=== PATIENT | male | born 1985 | race Caucasian/White ===

== ENCOUNTER 2021-04-03 20:24 | Inpatient (IN) | payer SELFPAY ==
[~2021-04-03] VITALS: Ht 182.9 cm; Wt 63.2 kg
[~2021-04-03 20:24] MED LIST: GLYB5TAB3 PO; METF10007 PO; METF500T16 PO
--- NOTE | 2021-04-03 20:28 | PHYS DOC ---
Past History Past Medical History: Diabetes, Other Past Surgical History: Other Smoking: Cigarettes Alcohol Use: Occasionally Drug Use: Amphetamine, Marijuana General Adult HPI: HPI: "... My sugars are up... ' Patient is a 35 year old MALE who presents with above hx and complaints of hyperglycemia . Pt. has past medical history of diabetes patient does have primary care at [facility]. Had previous admission for hyperglycemic sometimes glucoses were as high as 800. Patient does smoke., Does not drink alcohol but does use marijuana every day. Patient has been compliant with his insulin usage. Has completed 1 COVID vaccination. Has not completed flu vaccination or Pneumovax. No recent travel. No specific ill contacts. Hx. Tobacco and Methamphetaime use. Review of Systems: Review of Systems: Constitutional: Denies fever or chills Eyes: Denies change in visual acuity HENT: Denies nasal congestion or sore throat Respiratory: Denies cough or shortness of breath Cardiovascular: Denies chest pain or edema GI: Complains of nausea, vomiting,. Denies bloody stools or diarrhea : Denies dysuria Musculoskeletal: Denies back pain or joint pain Integument: Denies rash Neurologic: Denies headache, focal weakness or sensory changes Endocrine: Denies polyuria or polydipsia Lymphatic: Denies swollen glands Psychiatric: Denies depression or anxiety Family History: Family History: Non-contributory Current Medications: Current Meds: See Nursing for home meds Allergies: Allergies: Allergies Coded Allergies Type Severity Reaction Last Updated Verified Sulfa (Sulfonamide Antibiotics) Adverse Reaction Intermediate 05/07/14 Yes Physical Exam: PE: Constitutional: moderatedacute distress, non-toxic appearance. [] HENT: Normocephalic, atraumatic, bilateral external ears normal, oropharynx dry, no oral exudates, nose normal. []Poor dentition. Eyes: PERRLA, EOMI, conjunctiva normal, no discharge. [] Neck: Normal range of motion, no tenderness, supple, no stridor. [] Cardiovascular:Tachycardia Heart rate regular rhythm, no murmur [] Lungs & Thorax: Bilateral breath sounds equal at apexes on auscultation []. Some scattered wheezes. Abdomen: Bowel sounds normal, soft, no tenderness, no masses, no pulsatile masses. [] Skin: Warm, dry, no erythema, no rash. Poor turgor Back: No tenderness, no CVA tenderness. [] Extremities: No tenderness, no cyanosis, no clubbing, ROM intact, no edema. [] Neurologic: Alert and oriented X 3, normal motor function, normal sensory function, no focal deficits noted. [] Psychologic: Affect anxious, judgement normal, mood normal. [] EKG: EKG: My interpretation EKG shows a sinus rhythm at 64 bpm. Does have some left bundle block changes. But no findings acute STEMI of contralateral changes. Time of EKG is 20:33 hours [] My interpretation second EKG shows a sinus rhythm at 64 bpm. No acute morphology does have findings of left bundle branch block. Time of EKG is 109 hours Radiology/Procedures: Radiology/Procedures: [] Heart Score: C/O Chest Pain: No HEART Score for Chest Pain: HEART Score for Chest Pain Response (Comments) Value History Slighlty/Non-Suspicious 0 ECG Normal 0 Age < 45 0 Risk Factors 1 or 2 Risk Factors 1 Troponin < Normal Limit 0 Total 1 Risk Factors: Risk Factors: DM, Current or recent (<one month) smoker, HTN, HLP, family history of CAD, obesity. Risk Scores: Score 0 - 3: 2.5% MACE over next 6 weeks - Discharge Home Score 4 - 6: 20.3% MACE over next 6 weeks - Admit for Clinical Observation Score 7 - 10: 72.7% MACE over next 6 weeks - Early Invasive Strategies Course & Med Decision Making: Course & Med Decision Making Pertinent Labs and Imaging studies reviewed. (See chart for details) Discussed presentation, testing and tx. plan with Dr. Angelo- admit to his service. Insulin qtt and NS- Recheck potassium this AM after fluids and Insulin. Critical Care [address] Salgado- at shift change pending admit to [facility]. Impression: 1. DM- DKA 2. Hyperglycemia glucose . Dehydration 4. Leukocytosis 36.5 5. Hyponatremia 121 6. Hyperkalemia 6.4 7. Renal Insuf. 57 BUN/Creat 1.7 8. Anemia 12.4 Hgb 9. Malnutrition alb. 2.3 [] Owen Disclaimer: Owen Disclaimer: This electronic medical record was generated, in whole or in part, using a voice recognition dictation system. Departure Departure: Referrals: PCP,TITUS (PCP) Owen Disclaimer This chart was dictated in whole or in part using Voice Recognition software in a busy, high-work load, and often noisy Emergency Department environment. It may contain unintended and wholly unrecognized errors or omissions. Dragon Disclaimer This chart was dictated in whole or in part using Voice Recognition software in a busy, high-work load, and often noisy Emergency Department environment. It may contain unintended and wholly unrecognized errors or omissions. REED JOY MD Apr 03, 2021 20:27
[2021-04-03] MEDS ORDERED: IV NORMAL SALINE 1,000ML 1,000 ML IV SCH (20:45)
[2021-04-03] MEDS ORDERED: IV NORMAL SALINE 1,000ML 1,000 ML IV ONE (21:30)
--- NOTE | 2021-04-03 22:02 | RAD ---
Study: XR CHEST 1V Indication: Tachycardia. Comparison: 03/18/2019 Findings: Increased lung markings but the overall aeration pattern of the lungs is similar to the comparison. N o confluent airspace infiltrate, pleural effusion or pneumothorax. The cardiomediastinal silhouette i s within normal limits for size. Unchanged shirley. Impression: Nonspecific mildly increased lung markings but not significantly different from 03/18/2019. This coul d be chronic but mild interstitial edema is not entirely excluded in the setting of reported tachycar mina. No pleural effusion or lobar consolidation. Electronically signed by: NICOLAS HOLCOMB MD (04/03/2021 10:00 PM) [facility]
[2021-04-03 22:59] LABS: BASO # 0.3 x10^3/uL (0.0-0.2); BASO % 1 % (0-3); EOS # 0.1 x10^3/uL (0.0-0.7); EOS % 0 % (0-3); HEMATOCRIT 42.9 % (39.0-53.0); HEMOGLOBIN 12.4 g/dL (13.0-17.5); LYMPH # 5.2 x10^3/uL (1.0-4.8); LYMPH % 14 % (24-48); MEAN CORPUSCULAR HEMOGLOBIN 29 pg (25-35); MEAN CORPUSCULAR HGB CONC 29 g/dL (31-37); MEAN CORPUSCULAR VOLUME 101 fL (79-100); MONO # 1.9 x10^3/uL (0.0-1.1); MONO % 5 % (0-9); NEUT # 28.9 x10^3uL (1.8-7.7); NEUT % 79 % (31-73); PLATELET COUNT 304 x10^3/uL (140-400); RED BLOOD COUNT 4.27 x10^6/uL (4.30-5.70); RED CELL DISTRIBUTION WIDTH 14.5 % (11.5-14.5); WHITE BLOOD COUNT 36.5 x10^3/uL (4.0-11.0)
[2021-04-03 23:55] LABS: ALBUMIN 2.3 g/dL (3.4-5.0); ALK PHOS 183 U/L (46-116); ALT (SGPT) 39 U/L (16-63); AST (SGOT) 56 U/L (15-37); BLOOD UREA NITROGEN 57 mg/dL (8-26); CALCIUM 7.4 mg/dL (8.5-10.1); CHLORIDE 87 mmol/L (98-107); CREATININE 1.7 mg/dL (0.7-1.3); DIRECT BILIRUBIN 0.1 mg/dL (0.0-0.2); GFR 45.6; LIPASE 333 U/L (73-393); SODIUM 121 mmol/L (136-145); TOTAL BILIRUBIN 0.3 mg/dL (0.2-1.0); TOTAL PROTEIN 5.2 g/dL (6.4-8.2)
[2021-04-03 23:56] LABS: ANION GAP 29 (6-14)
[2021-04-04] VITALS (11 sets, daily range): BP systolic 92–132; BP diastolic 53–80
--- NOTE | 2021-04-04 00:17 | EKG ---
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
--- NOTE | 2021-04-04 00:17 | RAD ---
EXAMINATION: XR ABDOMEN 2V CLINICAL HISTORY: Pain, nausea/vomiting TECHNIQUE: XR ABDOMEN 2V COMPARISON: None FINDINGS/ IMPRESSION: Nonspecific, nonobstructive bowel gas pattern. No evidence of pneumoperitoneum or suspicious abdomina l calcifications. No evidence of acute osseous abnormality. Electronically signed by: Phuc Hendricks DO (04/04/2021 12:14 AM) [facility]
[2021-04-04 00:19] LABS: CARBON DIOXIDE < 5 mmol/L (21-32); POTASSIUM 6.4 mmol/L (3.5-5.1)
[2021-04-04] MEDS ORDERED: INSULIN REGULAR VIAL 100 UNIT in IV NORMAL SALINE 100ML 100 ML IV PRN (00:30)
[2021-04-04] MEDS ORDERED: ONDANSETRON PF 4 MG/2 ML VIAL. IVP PRN (00:30)
[2021-04-04] MEDS ORDERED: IV NORMAL SALINE 100ML 100 ML ONE ×2 (00:46→04:41)
[2021-04-04] MEDS ORDERED: cefTRIAXone SODIUM 1 GM VIAL ONE (00:46)
[2021-04-04] MEDS ORDERED: IV NORMAL SALINE 50ML 50 ML ONE (00:46)
[2021-04-04 00:59] LABS: GLUCOSE 843 mg/dL (70-99)
[2021-04-04] MEDS ORDERED: IV NORMAL SALINE 1,000ML 1,000 ML IV ONE ×2 (01:00)
[2021-04-04] MEDS: INSULIN REGULAR VIAL 100 UNIT in IV NORMAL SALINE 100ML 100 ML IV PRN ×3 (01:09→23:11)
--- NOTE | 2021-04-04 01:21 | EKG ---
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
[2021-04-04 01:49] LABS: % EOS 1 % (0-5); % LYMPHS 11 % (24-48); % MONOS 11 % (0-10); % SEGS 77 % (35-66); PLT ESTIMATE ADEQUATE (ADEQUATE)
[2021-04-04 01:51] LABS: INFLUENZA A PATIENT NEGATIVE (NEGATIVE); INFLUENZA B PATIENT NEGATIVE (NEGATIVE)
[2021-04-04 02:27] LABS: BARBITURATES NEG (NEG); BENZODIAZEPINES NEG (NEG); CANNABINOIDS NEG (NEG); COCAINE NEG (NEG); METHADONE NEG (NEG); OPIATES NEG (NEG); PHENCYCLIDINE NEG (NEG)
[2021-04-04 02:33] LABS: AMPHETAMINE/METHAMPHETAMINE POS (NEG)
[2021-04-04 02:47] LABS: BILIRUBIN,URINE NEG (NEG); CLARITY,URINE CLEAR; COLOR,URINE YELLOW; GLUCOSE,URINE 500 mg/dL (NEG)
[2021-04-04 02:48] LABS: BACTERIA,URINE MOD /HPF (0-FEW); NITRITE,URINE NEG (NEG); RBC,URINE >40 /HPF (0-2); SQUAMOUS EPITHELIAL CELL,UR MOD /LPF; UROBILINOGEN,URINE 0.2 mg/dL (0.2 mg/dL)
[2021-04-04] MEDS ORDERED: BENZOCAINE ONE 20% MUCOSAL SPRAY. MM (04:00)
[2021-04-04] MEDS: ACETAMINOPHEN 325 MG TABLET PO PRN ×2 (07:26→12:07)
[2021-04-04] MEDS ORDERED: IPRATRPIUM/ALBUTEROL 0.5/2.5MG 3 ML NEBU. NEB SCH (08:00)
--- NOTE | 2021-04-04 09:44 | RAD ---
XR HAND_RIGHT 3 VIEWS 04/04/2021 9:21 AM INDICATION: Hand pain COMPARISON: None available. TECHNIQUE: 3 views of the right hand are provided. FINDINGS/ IMPRESSION: Subtle subcortical cystic change identified along the radial margin of the distal aspect of the proxi mal phalanx of the third digit. No significant adjacent soft tissue swelling. Consideration may be gi naina for mild degenerative changes. No acute fracture or dislocation. No subcutaneous gas or osseous e rosion. Electronically signed by: Lucita Brooke MD (04/04/2021 9:42 AM) [id number]
--- NOTE | 2021-04-04 11:05 | NUR ---
Erum Schilling 35yo male, was admitted to ICU-2, inpatient, ICU status, Dr. Angelo dx: DKA. Pt was brought to unit via [facility]. Pt settled into room, oriented to room and bed, call light, etc. Admission assessment completed. Pt connected to monitors. Pt completed 1 bag of insulin drip and IVF in ER prior to arriving to our unit. Pt will be restarted upon arrival of medications from pharmacy. Dr. Angelo here to evaluate pt. Pt was provided written copies of hospital and unit policies and procedures.
[2021-04-04 11:54] LABS: BASO # 0.1 x10^3/uL (0.0-0.2); BASO % 1 % (0-3); EOS % 0 % (0-3); HEMATOCRIT 36.4 % (39.0-53.0); HEMOGLOBIN 11.9 g/dL (13.0-17.5); LYMPH # 2.4 x10^3/uL (1.0-4.8); LYMPH % 11 % (24-48); MEAN CORPUSCULAR HEMOGLOBIN 29 pg (25-35); MEAN CORPUSCULAR HGB CONC 33 g/dL (31-37); MEAN CORPUSCULAR VOLUME 89 fL (79-100); MONO # 2.3 x10^3/uL (0.0-1.1); MONO % 11 % (0-9); NEUT # 16.8 x10^3uL (1.8-7.7); NEUT % 78 % (31-73); PLATELET COUNT 250 x10^3/uL (140-400); RED BLOOD COUNT 4.11 x10^6/uL (4.30-5.70); RED CELL DISTRIBUTION WIDTH 13.7 % (11.5-14.5); WHITE BLOOD COUNT 21.5 x10^3/uL (4.0-11.0)
[2021-04-04] MEDS ORDERED: POTASSIUM CL 20MEQ D5-0.45NACL 1,000 ML IV ONE ×2 (12:04→16:27)
[2021-04-04 12:11] LABS: ALBUMIN 2.1 g/dL (3.4-5.0); ALBUMIN/GLOBULIN RATIO 0.8 (1.0-1.7); CALCIUM 7.6 mg/dL (8.5-10.1); CREATININE 1.2 mg/dL (0.7-1.3); GFR 68.1; TOTAL BILIRUBIN 0.3 mg/dL (0.2-1.0); TOTAL PROTEIN 4.8 g/dL (6.4-8.2)
--- NOTE | 2021-04-04 12:29 | HP ---
DATE OF SERVICE: 04/04/2021 ADMIT DATE: 04/04/2021 HISTORY OF PRESENT ILLNESS: The patient is a 35-year-old male patient who presented to the Emergency Room with a complaint of hyperglycemia and he stated that he is known to have insulin requiring type 1 diabetes mellitus since he was 31 years old and over the last few days, his blood sugar was extremely high, he also had blurring of vision and markedly unsteady gait and therefore, his son brought him to the Emergency Room for further evaluation and treatment where he was found to be in diabetic ketoacidosis, his blood sugar was more than 800, in fact was 843. He has dilutional hyponatremia, hyperkalemia, severe anion gap of 29 and acute kidney injury with a BUN of 57, creatinine 1.7. He was treated in the Emergency Room with IV fluid. He was apparently started on insulin drip and a total of 4 liters of normal saline. By the time I saw him, his blood sugar was down to 183. Unfortunately, no lab works done again to see whether he closed his gap. PAST MEDICAL HISTORY: Significant for type 1 diabetes mellitus diagnosed when he was 31 years old. He apparently was admitted with diabetic ketoacidosis 3 times since he was diagnosed. Denied any other medical problems. PAST SURGICAL HISTORY: Significant for right knee surgery. ALLERGIES: HE IS ALLERGIC TO SULFA DRUGS. MEDICATIONS: He is currently on Lantus insulin. He is also on metformin 1000 mg twice a day as well as glyburide 10 mg twice a day. He is also on NovoLog as per insulin sliding scale, although he claims that he is not on any medication. FAMILY HISTORY: He has one brother, older, and has hypertension; one sister, younger, and has epilepsy. His father in his 40s because of myocardial infarction. His mother is still alive at the age of 52 and healthy. SOCIAL HISTORY: He is single, has 3 sons, ages 13 and 15 and 19. He smokes marijuana and methamphetamine. Does not drink any alcohol. He usually works to [employer]. REVIEW OF SYSTEMS: The patient denied any blurring of vision, cataracts, glaucoma or macular degeneration. Denied any earache, tinnitus or sensory deafness. Denied any nosebleed, stuffy nose or postnasal drip. Denied any sore throat, sore tongue, toothache, hoarseness of voice or difficulty swallowing. Denied any nausea, vomiting. He did complain of diarrhea, but denied any constipation. Denied any hematemesis, melena or hematochezia. Denied any dysuria, frequency or hematuria. Denied any chest pain, shortness of breath, orthopnea or paroxysmal nocturnal dyspnea. Denied any cough, phlegm or hemoptysis. Denied any chills, rigors or fever. PHYSICAL EXAMINATION: GENERAL: On arrival to the Emergency Room, was tachypneic, but there was no pallor, jaundice or cyanosis, no lymphadenopathy, no thyromegaly, no jugular venous distention. No lower limb edema. VITAL SIGNS: His heart rate on arrival was 67, blood pressure was 85/58, temperature was 98, respiratory rate 26, and oxygen saturation was 92% on room air. HEAD, EYES, EARS, NOSE, AND THROAT: Normocephalic, atraumatic. NECK: Supple. HEART: Normal first and second heart sounds. No gallop, rub or murmur. CHEST: Clear to auscultation, no crepitation or rhonchi. ABDOMEN: Scaphoid, soft, nontender. NEUROLOGIC: He apparently was very lethargic; however, without any motor or sensory deficit. His EKG showed that he was in sinus rhythm at a rate of 64 beats per minute. Does have some left bundle block changes, but no finding of ST segment elevation myocardial infarction. LABORATORY DATA: Has had lab work and imaging studies. His CBC showed a white cell count of 36,500, hemoglobin 12.4, hematocrit 42.9, MCV 101, and platelet count of 304,000 with a manual differential showed 79% polymorphs, 14% lymphocytes and 5% monocytes. His chemistry showed a serum sodium of 121, potassium 6.4, chloride 87, bicarbonate less than 5, anion gap of 29, BUN 57, creatinine 1.7. Estimated GFR was 45 mL per minute. His glucose was 843, calcium was 7.4. Total bilirubin, AST, ALT, alkaline phosphatase are all normal. His troponin was less than 12, beta natriuretic peptide was 66. Total protein was 5.2, albumin was 2.3, serum lipase was 333. Urinalysis showed the urine was yellow, clear, with a pH of 5.5, specific gravity 1.015. There was small amount of protein, large amount of glucose, large amount of ketones, large amount of blood. The urine was negative for nitrite and bilirubin. Negative for leukocyte esterase. There are more than 40 rbc's, 5-10 wbc's and moderate amount of bacteria. His urine toxic screen was positive for amphetamine, methamphetamine. His coronavirus or influenza A and B were negative and coronavirus by rapid testing was negative. Did have a chest x-ray, which showed mildly increased lung marking, but not significantly different from 03/26/2019. This could be chronic, but mild interstitial edema is not entirely excluded in the setting of a reported tachycardia. No pleural effusion or lobar consolidation. Did have an x-ray of his right hand, which shows subtle subcortical cystic change identified along the radial margin of the distal aspect of the proximal phalanx of the third digit. No significant adjacent soft tissue swelling. Consideration may be given to mild degenerative changes, no acute fracture or dislocation. No subcutaneous gas or osseous erosions. X-ray of the abdomen showed the patient has nonspecific nonobstructive bowel gas pattern. No evidence of pneumoperitoneum or suspicious abdominal calcification. No evidence of acute osseous abnormality. ASSESSMENT AND PLAN: The patient was admitted with diabetic ketoacidosis with severe anion gap acidosis, dilutional hyponatremia and acute kidney injury. As his baseline creatinine is only 0.7, plan is to continue with DKA protocol with IV fluids, insulin drip. Once his blood sugar gets less than 250, we will change him to D5W. Continue with insulin drip and IV fluid and repeat his labs again and if the anion gap is closed, he is able to eat and drink, we can stop the drip and start him on insulin sliding scale as well Lantus. JAYLENE DR: Earl TID: [id number]
--- NOTE | 2021-04-04 13:00 | NUR ---
Per Dr. Angelo, pt is to continue on insulin drip overnight. IVF to remain running per DKA protocol. Glucostablizer not working properly, refer to glucostablizer written form for hourly glucose readings and insulin adjustments.
[2021-04-04] MEDS: IV DEXTROSE 5 %-0.45 % NACL 1,000 ML IV SCH ×2 (16:45→23:50)
[2021-04-05 00:03] VITALS: BP 113/85
[2021-04-05 02:13] VITALS: BP 90/54
[2021-04-05 03:10] VITALS: BP 102/59
[2021-04-05 04:08] VITALS: BP 117/70
[2021-04-05 05:17] VITALS: BP 102/65
[2021-04-05] MEDS: IV DEXTROSE 5 %-0.45 % NACL 1,000 ML IV SCH (05:31)
[2021-04-05 06:05] VITALS: BP 103/70
[2021-04-05 06:15] LABS: BASO % 0 % (0-3); EOS % 0 % (0-3); HEMATOCRIT 31.6 % (39.0-53.0); HEMOGLOBIN 10.8 g/dL (13.0-17.5); LYMPH # 1.3 x10^3/uL (1.0-4.8); LYMPH % 9 % (24-48); MEAN CORPUSCULAR HEMOGLOBIN 29 pg (25-35); MEAN CORPUSCULAR HGB CONC 34 g/dL (31-37); MEAN CORPUSCULAR VOLUME 85 fL (79-100); MONO # 1.1 x10^3/uL (0.0-1.1); MONO % 8 % (0-9); NEUT # 12.3 x10^3uL (1.8-7.7); NEUT % 84 % (31-73); PLATELET COUNT 224 x10^3/uL (140-400); RED CELL DISTRIBUTION WIDTH 14.3 % (11.5-14.5); WHITE BLOOD COUNT 14.7 x10^3/uL (4.0-11.0)
--- NOTE | 2021-04-05 06:24 | NUR ---
Insulin drip continued through the night with hourly glucose monitoring, blood sugars range 106-174mg/dl, with insulin currently infusing at 4.6ml/hr as per glucose stabilizer protocol; sleeping soundly with no apparent distress, easily awakens, denies any c/o; voids total approx 2350ml clear yellow urine without difficulty; VSS; no voiced needs or concerns at this time.
[2021-04-05 06:26] LABS: ALBUMIN/GLOBULIN RATIO 0.7 (1.0-1.7); CALCIUM 7.7 mg/dL (8.5-10.1); CREATININE 0.9 mg/dL (0.7-1.3); POTASSIUM 3.3 mmol/L (3.5-5.1); TOTAL BILIRUBIN 0.2 mg/dL (0.2-1.0); TOTAL PROTEIN 4.8 g/dL (6.4-8.2)
[2021-04-05] MEDS ORDERED: POTASSIUM CHLORIDE 20 MEQ TABLET.ER. PO ONE ×2 (08:00→10:00)
[2021-04-05] MEDS ORDERED: DEXTROSE 50% 25 GM / 50ML DISP.SYRIN. IV PRN (08:15)
--- NOTE | 2021-04-05 11:15 | NUR ---
PT IS DISCHARGED HOME WITH SELF CARE. PT IS GIVEN ALL DISCHARGED AND FOLLOW UP INSTRUCTIONS. PT IS GIVEN PRESCRIPTIONS FOR NOVOLOG AND LANTUS. PTS IV IS REMOVED AND TELE MONITOR D/C'D. PT IS ESCORTED OFF OF UNIT ACCOMPNAIED BY STAFF.
[2021-04-05] MEDS ORDERED: INSULIN LISPRO 300 UNITS/3 ML VIAL. SQ SCH (12:00)
--- NOTE | 2021-04-05 12:58 | DS ---
DATE OF DISCHARGE: 04/05/2021 ATTENDING PHYSICIAN: Dr. Arriaza. FINAL DISCHARGE DIAGNOSES: 1. Diabetic ketoacidosis. 2. Type 1 diabetes mellitus. 3. Noncompliance of medications. 4. Dehydration. 5. Pseudohyponatremia due to hyperglycemia. HISTORY AND PHYSICAL: This is a 35-year-old gentleman, type 1 diabetic, who has not been compliant. He was admitted to the ED with vague symptoms of weakness and dehydration. Sugars were over 800. He had a significant anion gap. Creatinine was 1.7 mg/dL with a BUN of 57. He was started on fluids and an insulin drip. PHYSICAL EXAMINATION: Please see the dictated note. PERTINENT LABORATORY AND X-RAY STUDIES: Admission hemoglobin was 12.4 g/dL, white count 36,000, repeat was down to 21,000 and 14,700. Urine drug screen positive for amphetamines, negative for alcohol. Serology negative for coronavirus. Urinalysis as noted. Chemistry panel: Subsequent blood sugars came down nicely to the low 100s. Anion gap is corrected down to 7, potassium 3.3 mEq, and sodium up to 138 mEq. Transaminases were normal. COURSE IN THE HOSPITAL: The patient was admitted. He was started on an insulin drip. Glucose stabilizer protocol with improvement. Anion gap corrected. Serial chemistry was done. Diet was advanced. By the third hospital day, sugars were in the low 100s. Vital signs were stable. Anion gap was 7. He was ready for discharge. Strong encouragement for continuation of the daily insulin regimen. I wrote him scripts for regular insulin 10 units 3 times a day before each meal and 30 units of Lantus at bedtime. He needs to find a primary care physician and whether or not he will do so remains to be seen. He was discharged then from our hospital in a stable condition with explicit drug and followup care. Total discharge time 41 minutes. MARSHAL/INGA DR: Orlando TID: [id number] CC: BERT SCHMIDT MD
== END 2021-04-05 11:15 | disposition home or self-care (01) | DRG 638 ==
LOC: ER 20:24 → ICU 04-04 10:16
PROVIDERS: ADMIT Internal Medicine; ATTEND Internal Medicine
DX: E10.10 Type 1 diabetes mellitus with ketoacidosis without coma (principal); E46 Unspecified protein-calorie malnutrition; E87.1 Hypo-osmolality and hyponatremia; N17.9 Acute kidney failure, unspecified; Z68.1 Body mass index [BMI] 19.9 or less, adult; D72.829 Elevated white blood cell count, unspecified; E86.0 Dehydration; E87.5 Hyperkalemia; F12.90 Cannabis use, unspecified, uncomplicated; Z79.4 Long term (current) use of insulin; Z82.0 Family history of epilepsy and other diseases of the nervous system; Z82.49 Family history of ischemic heart disease and other diseases of the circulatory system; Z87.891 Personal history of nicotine dependence; Z91.14 Patient's other noncompliance with medication regimen; Z91.19 Patient's noncompliance with other medical treatment and regimen; Z20.822 Contact with and (suspected) exposure to COVID-19
CPT/HCPCS: 36415; 71045; 73130; 74019; 80048; 80053; 80076; 80307; 81001; 82803; 82947; 83690; 83880; 84443; 84484; 85007; 85025; 87086; 87426; 87804; 93005; 96361; 96365; J0696; J1815; U0003; 99291-25; J7030